=== PATIENT | female | born 1970 | race Caucasian/White ===

== ENCOUNTER 2022-04-11 14:58 | Emergency (ER) | payer OTHER, SELFPAY ==
[2022-04-11] VITALS (14 sets, daily range): BP systolic 99–126; BP diastolic 59–80; PULSE 74–90; RESP 11–23; TEMP 36.6; O2SAT 92–100
--- NOTE | ~2022-04-11 | XR_ITS ---
EXAMINATION: XR chest 2V DATE: 04/11/2022 16:21 INDICATION: Chest pain TECHNIQUE: PA and lateral views of the chest are obtained. COMPARISON: None available FINDINGS: The lungs are free of acute opacities. There is no pleural effusion or pneumothorax. The ca rdiomediastinal silhouette is normal. There is moderate thoracic spondylosis. Surgical clips in the r ight upper quadrant are likely from prior cholecystectomy. IMPRESSION: 1. No acute cardiopulmonary abnormality. Reviewed, dictated and finalized at location A.
--- NOTE | ~2022-04-11 | CT_ITS ---
EXAMINATION: CTA chest DATE: 04/11/2022 18:10 INDICATION: severe chest pain TECHNIQUE: Computed tomography angiography (CTA) of the chest was performed with 100 mL Omnipaque-350 intravenous contrast timed to evaluate the pulmonary arteries. Coronal maximum intensity projection 3D-reconstructions were created by the technologist. The dose-length product (DLP) was 200.38 mGy-cm. Automated exposure control and iterative reconstruction technique were employed. COMPARISON: None. FINDINGS: Study quality: Adequate. Pulmonary arteries: No pulmonary emboli detected. Thoracic aorta: Mild ascending thoracic aortic ectasia. Lung parenchyma and airways: Multiple scattered 1 to 2 mm pulmonary nodules. Airways clear. Thoracic inlet, axillae and chest wall: Unremarkable. Mediastinum: Normal. Heart and pericardium: Normal. Coronary artery calcifications: Absent. Pleura: Unremarkable. Upper abdomen: No significant finding. Bones: No acute osseous finding. IMPRESSION: No CT evidence of acute pulmonary embolus. Multiple pulmonary nodules, most likely representing granu jhonatan. If the patient is low risk for lung cancer, no follow-up is needed. If the patient is high ris k (i.e., history of smoking or asbestos or radiation exposure), consider optional follow-up noncontra st low-dose chest CT at 12 months. Reviewed, dictated and finalized at location K. IMPRESSION: No CT evidence of acute pulmonary embolus. Multiple pulmonary nodules, most lik tanner representing granulomas. If the patient is low risk for lung cancer, no fol low-up is needed. If the patient is high risk (i.e., history of smoking or asbe stos or radiation exposure), consider optional follow-up noncontrast low-dose c hest CT at 12 months.
--- NOTE | 2022-04-11 15:02 | ECG_ITS ---
Measurements Intervals [place] Rate: 79 P: 1 AK: 145 QRS: 2 QRSD: 78 T: 59 QT: 380 QTc: 437 Interpretive Statements SINUS RHYTHM BASELINE ARTIFACT LOW-VOLTAGE QRS IN PRECORDIAL LEADS BORDERLINE ECG NO PREVIOUS ECG AVAILABLE FOR COMPARISON Electronically Signed On 04-11-2022 15:10:32 CDT by Cipriano John M.D.
[2022-04-11 15:15] LABS: Hematocrit 40.5 % (37.0-47.0); Hemoglobin 13.1 g/dL (12.0-15.0); Immature Granulocyte Absolute 0.01 K/mm3 (0.00-0.031); Immature Granulocyte Percent A 0.2 % (0-0.5); Lymphocytes Absolute Auto 1.75 K/mm3 (0.9-3.2); Lymphocytes Percent Auto 35.4 % (18.3-44.2); Mean Corpuscular HGB Conc 32.3 g/dl (32-36); Mean Corpuscular Hemoglobin 27.9 pg (26-34); Mean Corpuscular Volume 86.4 fl (80-100); Mean Platelet Volume 9.8 fl (7.4-10.4); Monocytes Absolute Auto 0.4 K/mm3 (0.1-0.6); Monocytes Percent Auto 8.5 % (2.6-8.5); Neutrophils Absolute Auto 2.8 K/mm3 (1.3-6.7); Neutrophils Percent Auto 55.9 % (45.5-73.1); Platelet Count Result 277 k/mm3 (150-375); Red Blood Count 4.69 M/mm3 (4.2-5.4); White Blood Count 4.9 K/mm3 (4.5-10.0)
[2022-04-11 15:26] LABS: Alanine Aminotransferase 25 U/L (6-35); Albumin Level 4.5 g/dL (3.5-5.1); Alkaline Phosphatase 107 U/L (38-126); Anion Gap 9 mmol/L (8-16); Aspartate Amino Transferase 27 U/L (14-36); Bilirubin,Total 0.4 mg/dL (0.2-1.3); Blood Urea Nitrogen 19 mg/dL (7-17); Calcium 8.8 mg/dL (8.4-10.2); Carbon Dioxide 27 mmol/L (22-30); Chloride 104 mmol/L (98-107); Estimated CRCL calculation 63 ml/min; Estimated Glomerular Filt Rate > 60; Glucose 136 mg/dL (65-110); Lipase 90 U/L (23-300); Potassium 4.2 mmol/L (3.4-5.0); Sodium 140 mmol/L (137-145)
[2022-04-11 15:34] LABS: Prothrombin Time 12.5 Seconds (11.1-14.7)
[2022-04-11 15:35] LABS: Partial Thromboplastin Time 30.3 SECONDS (22.3-36.8)
[2022-04-11 15:38] LABS: Troponin I < 0.012 ng/mL (0.000-0.034)
--- NOTE | 2022-04-11 15:49 | ED.CHESTPAIN ---
HPI - Chest Pain General Chief Complaint: Chest Pain Stated Complaint: chest pain Time Seen by Provider: 04/11/22 15:49 History of Present Illness HPI narrative: Patient is a 51-year-old female with a history of anxiety presenting to the emergency department for evaluation of chest pain. Patient reports central chest pain that is described as aching, pressure-like sensation that radiates to the right middle back with associated shortness of breath. Patient denies diaphoresis without nausea or vomiting. Patient states that she was 19 anything specific when the pain began approximately 2 hours prior to arrival. Patient denies any history of cardiac problems in the past. No family history of sudden cardiac . She has no known history of hypertension, hyperlipidemia. She denies lower extremity swelling, redness. Patient denies any cough or hemoptysis. Denies recent surgery or immobility. Patient states that her chest pain caused her anxiety to flare and caused her to feel more panicked. Related Data Allergies Allergy/AdvReac Type Severity Reaction Status Date / Time hydrocodone Allergy Nausea and Verified 04/11/22 16:19 Vomiting Review of Systems Review of Systems: CONSTITUTIONAL: Denies fever, chills, or sweats. EYES: Denies visual changes, redness, or discharge. ENT: Denies rhinorrhea, congestion, sore throat, or otalgia. CARDIOVASCULAR: Reports chest pain without palpitations or edema RESPIRATORY: Denies cough, reports mild shortness of breath GASTROINTESTINAL: Denies abdominal pain, nausea, vomiting, or diarrhea. GENITOURINARY: Denies dysuria or hematuria. SKIN: Denies rash or itching. MUSCULOSKELETAL: Denies back pain, joint pain, or myalgia. NEUROLOGIC: Denies headache, numbness, or weakness. PSYCHIATRIC: Patient reports history of anxiety and panic disorder [facility] Social History Social History (Updated 04/11/22 @ 16:02 by Dolores De Jesus MD) Smoking status: Never smoker Alcohol intake: never Substance use: never Living arrangements: with family Gender identity (if verbalized by the patient): Female Exam Narrative: GENERAL: Awake, alert, conversant HEAD: Normocephalic, atraumatic. EYES: PERRLA and EOMI. ENT: Nares clear, no rhinorrhea or epistaxis. Mucous membranes moist. NECK: Supple. CHEST: No respiratory distress, breathing even and non labored, no chest wall tenderness HEART: Regular rate, sinus rhythm ABDOMEN:Non distended, non tender EXTREMITIES: Normal range of motion. No edema. SKIN: Warm, dry, no rash. NEURO:No focal deficits. Alert and oriented x3 Course Vital Signs Vital signs: Vital Signs Temperature 36.6 C 04/11/22 15:02 Pulse Rate 82 04/11/22 15:02 Respiratory Rate 16 04/11/22 15:02 Blood Pressure 126/80 04/11/22 15:02 Pulse Oximetry 100 04/11/22 15:02 Oxygen Delivery Room Air 04/11/22 15:02 Temperature 36.6 C 04/11/22 15:02 Pulse Rate 82 04/11/22 17:45 Respiratory Rate 14 04/11/22 17:45 Blood Pressure 104/62 04/11/22 17:45 Pulse Oximetry 98 04/11/22 17:45 Oxygen Delivery Room Air 04/11/22 16:17 MDM - Chest Pain MDM Narrative Medical decision making narrative: Patient presenting for evaluation of chest pain. At the time of assessment, ABCs are intact and vital signs are stable. EKG without acute ischemic changes. Patient was given aspirin, declined other pain medication. Patient's EKG and labs are without significant high risk changes. Cardiac risk factors reviewed. Patient heart score is 1. Patient is felt low risk for ACS and reasonable for further risk stratification testing as an outpatient. Pain was not sudden or maximal or onset without tearing or ripping quality. No other signs or symptoms to suggest aortic dissection. A low risk well's criteria is noted, PE is felt to be unlikely. Did obtain a CT aorta to ensure no dissection, it was normal. No pneumonia seen on evaluation today. Patient does have lung nodules
[2022-04-11] MEDS: ASPIRIN 81 MG CHEWABLE TABLET 324 MG PO (16:26)
[2022-04-11 16:28] LABS: D Dimer 0.36 ug/mL (<0.48)
[2022-04-11] MEDS: LORazepam INJ (*CRX) 2 MG/ML VIAL 0.5 MG IV PUSH (16:37)
[2022-04-11 19:01] LABS: Troponin I < 0.012 ng/mL (0.000-0.034)
== END 2022-04-11 19:29 | disposition home or self-care (01) ==
PROVIDERS: Emergency Medicine; Emergency Provider Emergency Medicine; PCP Family Medicine
DX: R07.89 Other chest pain (principal)
CPT/HCPCS: 36415; 71046; 71275; 80053; 83690; 84484; 85025; 85380; 85610; 85730; 93005; 96374; 99284; A9270; J2060; Q9967